=== PATIENT | female | born 1935 ===

== ENCOUNTER 2019-06-09 13:13 | Outpatient (CLI) | payer MEDICARE ==
--- NOTE | 2019-06-09 14:25 | RAD ---
Right hand 3 views: 06/09/2019 COMPARISON: None HISTORY: Right-sided wrist pain FINDINGS: Mild radiocarpal joint space narrowing. Chondrocalcinosis noted in the region of the fibroc artilage complex. Scattered areas of degenerative joint disease noted within the hand, most prominent in the region of the first carpometacarpal joint as well as the distal interphalangeal join ts of the second and third fingers. No acute fracture or evidence of dislocation is seen. IMPRESSION: Degenerative joint disease as detailed above.
== END 2019-06-09 13:14 | disposition home or self-care (01) ==
LOC: RAD 13:13
PROVIDERS: ATTEND Nurse Practitioner Family
DX: M79.641 Pain in right hand (principal); M25.531 Pain in right wrist; M19.041 Primary osteoarthritis, right hand

== ENCOUNTER 2019-10-25 11:52 | Outpatient (CLI) | payer MEDICARE ==
--- NOTE | 2019-10-25 12:35 | RAD ---
EXAM: Two views chest PROVIDED CLINICAL HISTORY: Dyspnea. COMPARISON: None FINDINGS: Cardiac silhouette and pulmonary vasculature are within normal limits. There is mild prominence of t he interstitial markings which may be related to mild chronic lung changes. There is no consolidation or pleural fluid seen within the lungs bilaterally. Vascular calcifications are seen in the thoracic and visualized abdominal aorta. Osteopenia is present. IMPRESSION: Mild chronic lung changes without evidence of an acute cardiopulmonary process..
== END 2019-10-25 11:53 | disposition home or self-care (01) ==
LOC: BICRAD 11:52
PROVIDERS: ATTEND Internal Medicine Critical Care Medicine
DX: R06.00 Dyspnea, unspecified (principal)
CPT/HCPCS: 71046

== ENCOUNTER 2025-02-23 09:17 | Outpatient (CLI) | payer MEDICARE | END 2025-02-23 09:18 | disposition home or self-care (01) | LOC: RAD 09:17 | PROVIDERS: ATTEND Internal Medicine Critical Care Medicine | DX: R06.00 Dyspnea, unspecified (principal); I51.7 Cardiomegaly; J44.9 Chronic obstructive pulmonary disease, unspecified | CPT/HCPCS: 71046 ==